=== PATIENT | female | born 1955 | race Caucasian/White ===

== ENCOUNTER 2017-02-16 06:54 | Day surgery (SDC) | payer OTHER ==
--- NOTE | 2017-02-12 13:53 | NUR ---
KELSEY KINSEY WITH DR. DIAMOND'S OFFICE NOTIFIED FOR NEED OF CARDIOLOGY WORKUP INFORMATION FROM NOVEMBER. WILL LOOK INTO THIS AND GET BACK WITH [facility].
[~2017-02-16] VITALS: Ht 152.4 cm; Wt 50.0 kg
[~2017-02-16 06:54] MED LIST: CALC500T55 PO; CYCL7.5T27 PO; GBPN300C PO; LACTATED RINGERS 1,000 ML IV SCH; LEVO25TA2 PO; LSRT50T PO; MAGN100T4 PO; MTP50T PO; NF-ESOM40C PO; SODIUM CHLORIDE FLUSH 3 ML SYR IV PRN; [UNRECOGNIZED DRUG - CODE] TP
--- OUTSIDE RECORDS SUMMARY | 2017-02-16 06:58 | XMS REPORT | Continuity of Care Document ---
Author Author [facility] Organization [facility] Address Unknown Phone Unavailable Allergies Active Description Code Type Severity Reaction Onset Reported/Identified Relationship to Patient Clinical Status Yes Penicillins [id number] Drug Allergy Unknown N/A 03/06/2016 Yes Sulfa (Sulfonamide Antibiotics) [id number] Drug Allergy Unknown N/A 03/06/2016 Yes CHARLEE Inhibitors [id number] Drug Allergy Unknown N/A 02/13/2017 Yes latex [id number] Drug Allergy Unknown N/A 02/13/2017 Medications Problems Date Dx Coded Attending Type Code Diagnosis Diagnosed By 12/17/2015 Ot 793.82 12/17/2015 Ot 793.82 12/24/2015 JASE GAMEZ, ADALBERTO Urbano Ot R51 12/24/2015 JASE GAMEZ, ADALBERTO Urbano Ot M51.36 12/24/2015 JASE GAMEZ, ADALBERTO Urbano Ot M54.5 01/17/2016 JASE GAMEZ, ADALBERTO Urbano Ot R51 01/17/2016 JASE GAMEZ, ADALBERTO Urbano Ot M51.36 01/17/2016 JASE GAMEZ, ADALBERTO Urbano Ot M54.5 02/22/2016 Ot 793.82 INCONCLUSIVE MAMMOGRAM 02/22/2016 Ot 793.82 INCONCLUSIVE MAMMOGRAM 02/22/2016 JASE GAMEZ, ADALBERTO Urbano Ot R51 HEADACHE 02/22/2016 JASE GAMEZ, ADALBERTO Urbano Ot M51.36 OTHER INTERVERTEBRAL DISC DEGENERATION, 02/22/2016 JASE GAMEZ, ADALBERTO Urbano Ot M54.5 LOW BACK PAIN 03/06/2016 Ot 793.82 INCONCLUSIVE MAMMOGRAM 03/06/2016 Ot 793.82 INCONCLUSIVE MAMMOGRAM 03/06/2016 JASE GAMEZ, ADALBERTO Urbano Ot R51 HEADACHE 03/06/2016 JASE GAMEZ, ADALBERTO Urbano Ot M51.36 OTHER INTERVERTEBRAL DISC DEGENERATION, 03/06/2016 JASE GAMEZ, ADALBERTO Urbano Ot M54.5 LOW BACK PAIN 03/10/2016 Dafne Cobos Ot M51.16 INTERVERTEBRAL DISC DISORDERS W RADICULO 03/10/2016 Manguoglu, Ali B Ot M51.26 OTHER INTERVERTEBRAL DISC DISPLACEMENT, 03/11/2016 Manguoglu, Ali B Ot M51.16 INTERVERTEBRAL DISC DISORDERS W RADICULO 03/11/2016 Manguoglu, Ali B Ot M51.26 OTHER INTERVERTEBRAL DISC DISPLACEMENT, 05/06/2016 Manguoglu, Ali B Ot M51.16 INTERVERTEBRAL DISC DISORDERS W RADICULO 05/08/2016 Manguoglu, Ali B Ot M51.16 INTERVERTEBRAL DISC DISORDERS W RADICULO 05/21/2016 Ot 793.82 INCONCLUSIVE MAMMOGRAM 05/21/2016 Ot 793.82 INCONCLUSIVE MAMMOGRAM 05/21/2016 JASE GAMEZ, ADALBERTO Urbano Ot R51 HEADACHE 05/21/2016 JASE GAMEZ, ADALBERTO Urbano Ot M51.36 OTHER INTERVERTEBRAL DISC DEGENERATION, 05/21/2016 JASE GAMEZ, ADALBERTO Urbano Ot M54.5 LOW BACK PAIN 05/21/2016 Manguoglu, Ali B Ot M51.16 INTERVERTEBRAL DISC DISORDERS W RADICULO 05/21/2016 Manguoglu, Ali B Ot M51.26 OTHER INTERVERTEBRAL DISC DISPLACEMENT, 05/21/2016 Manguoglu, Ali B Ot M51.16 INTERVERTEBRAL DISC DISORDERS W RADICULO 05/21/2016 Manguoglu, Ali B Ot M51.16 INTERVERTEBRAL DISC DISORDERS W RADICULO 05/22/2016 Ot 793.82 INCONCLUSIVE MAMMOGRAM 05/22/2016 Ot 793.82 INCONCLUSIVE MAMMOGRAM 05/22/2016 JSAE GAMEZ, ADALBERTO Urbano Ot R51 HEADACHE 05/22/2016 JASE GAMEZ, ADALBERTO Urbano Ot M51.36 OTHER INTERVERTEBRAL DISC DEGENERATION, 05/22/2016 ADALBERTO LAGUNA MD Ot M54.5 LOW BACK PAIN 05/22/2016 Manguoglu, Ali B Ot M51.16 INTERVERTEBRAL DISC DISORDERS W RADICULO 05/22/2016 Manguoglu, Ali B Ot M51.26 OTHER INTERVERTEBRAL DISC DISPLACEMENT, 05/22/2016 Manguoglu, Ali B Ot M51.16 INTERVERTEBRAL DISC DISORDERS W RADICULO 05/22/2016 Manguoglu, Ali B Ot M51.16 INTERVERTEBRAL DISC DISORDERS W RADICULO 06/09/2016 Manguoglu, Ali B Ot G57.02 LESION OF SCIATIC NERVE, LEFT LOWER LIMB 06/09/2016 Manguoglu, Ali B Ot M47.896 OTHER SPONDYLOSIS, LUMBAR REGION 06/09/2016 Manguoglu, Ali B Ot M54.16 RADICULOPATHY, LUMBAR REGION 06/09/2016 Manguoglu, Ali B Ot M51.16 INTERVERTEBRAL DISC DISORDERS W RADICULO 06/23/2016 Ot 793.82 INCONCLUSIVE MAMMOGRAM 06/23/2016 Ot 793.82 INCONCLUSIVE MAMMOGRAM 06/23/2016 JASE GAMEZ, ADALBERTO Urbano Ot R51 HEADACHE 06/23/2016 JASE GAMEZ, ADALBERTO Urbano Ot M51.36 OTHER INTERVERTEBRAL DISC DEGENERATION, 06/23/2016 JASE GAMEZ, ADALBERTO Urbano Ot M54.5 LOW BACK PAIN 06/23/2016 Manguoglu, Ali B Ot M51.16 INTERVERTEBRAL DISC DISORDERS W RADICULO 06/23/2016 Manguoglu, Ali B Ot M51.26 OTHER INTERVERTEBRAL DISC DISPLACEMENT, 06/23/2016 Manguoglu, Ali B Ot M51.16 INTERVERTEBRAL DISC DISORDERS W RADICULO 06/23/2016 Manguoglu, Ali B Ot M51.16 INTERVERTEBRAL DISC DISORDERS W RADICULO 06/23/2016 Manguoglu, Ali B Ot G57.02 LESION OF SCIATIC NERVE, LEFT LOWER LIMB 06/23/2016 Manguoglu, Ali B Ot M47.896 OTHER SPONDYLOSIS, LUMBAR REGION 06/23/2016 Manguoglu, Ali B Ot M54.16 RADICULOPATHY, LUMBAR REGION 07/29/2016 Manguoglu, Ali B Ot M54.16 RADICULOPATHY, LUMBAR REGION 07/29/2016 Manguoglu, Ali B Ot M54.5 LOW BACK PAIN 09/02/2016 Manguoglu, Ali B Ot G57.02 LESION OF SCIATIC NERVE, LEFT LOWER LIMB 09/02/2016 Manguoglu, Ali B Ot M47.896 OTHER SPONDYLOSIS, LUMBAR REGION 09/02/2016 Manguoglu, Ali B Ot M54.16 RADICULOPATHY, LUMBAR REGION 09/03/2016 Manguoglu, Ali B Ot M54.16 RADICULOPATHY, LUMBAR REGION 09/03/2016 Manguoglu, Ali B Ot M54.5 LOW BACK PAIN 10/03/2016 Manguoglu, Ali B Ot M51.16 INTERVERTEBRAL DISC DISORDERS W RADICULO Procedures Code Description Performed By Performed On [id number] 02/22/2016 [id number] 03/06/2016 [id number] INTRODUCTION OF ANTI-INFLAMMATORY INTO M 05/22/2016 [id number] INTRODUCTION OF LOCAL ANESTHETIC INTO MU 05/22/2016 [id number] INTRODUCTION OF ANTI-INFLAM INTO SPINAL 06/23/2016 Results Encounters ACCT No. Visit Date/Time Discharge Status Pt. Type Provider Facility Loc./Unit Complaint [id number] 02/19/2015 10:00:00 02/15/2015 08: 35:00 DIS Outpatient [facility] OUT
[2017-02-16 07:07] VITALS: BP 146/98
[2017-02-16] MEDS ORDERED: LACT1CAP69 PO (07:24)
[2017-02-16] MEDS ORDERED: MULT-976 PO (07:24)
[2017-02-16] MEDS ORDERED: ZINC30TA2 PO (07:24)
[2017-02-16] MEDS ORDERED: MIDAZOLAM 2 MG/2 ML (VERSED) VIAL ONE (07:31)
[2017-02-16] MEDS ORDERED: PROPOFOL 20 ML IV ONE (07:31)
[2017-02-16] MEDS ORDERED: ALFENTANIL 500 MCG/ML (ALFENTA) 5 ML AMP IV ONE (07:31)
[2017-02-16 08:58] VITALS: BP 131/76
[2017-02-16 09:16] VITALS: BP 148/89
--- NOTE | 2017-02-16 09:48 | OPERATIVE REPORT ---
DATE OF OPERATION: 02/16/2017 PRE-OPERATIVE DIAGNOSIS: History of adenomatous colon polyps POST-OPERATIVE DIAGNOSIS: Colon polyps OPERATIVE PROCEDURE: Total colonoscopy with polypectomies (endoscopic mucosal resection) SURGEON: Kenrick Kennedy MD ANESTHESIA: Monitored anesthesia care FINDINGS: 1. The bowel prep was good. 2. There were 3 small polyps that were each removed using saline-lift technique. Pathology is pending. 3. There were no diverticula, inflammation, or angiodysplasia. INDICATION: The patient is a 62-year-old referred by Gracie Strange and Dr. Rodrigez for surveillance colonoscopy. She has a previously of colon polyps. DESCRIPTION OF PROCEDURE: The patient was informed of the risks and benefits and agreed to proceed. She was placed in the left lateral decubitus position and administered IV sedation. When properly sedated a rectal exam was performed, which was normal. The lighted endoscope was passed into the rectum and advanced along the colon. At the region of the hepatic flexure the first polyp was noted and removed using the saline lift and cautery snare. The scope was then advanced to the cecum where the ileocecal valve and the appendiceal orifice were easily seen. The scope was slowly brought back into the ascending colon again where 2 other polyps were seen and removed using the same technique. The transverse, descending, and sigmoid colon were inspected carefully and no polyps were seen there. The rectum appeared normal on regular view and retroflexion. The scope was removed completing the procedure. The patient tolerated the procedure without complications. Pathology is pending, but I will most likely recommend 5-year interval colonoscopy regardless of the pathology report.
== END 2017-02-16 09:23 | disposition home or self-care (01) ==
LOC: ASC 06:54
PROVIDERS: ATTEND Surgery
DX: D12.2 Benign neoplasm of ascending colon (principal); Z86.010 Personal history of colon polyps; Z80.0 Family history of malignant neoplasm of digestive organs; I10 Essential (primary) hypertension; E03.9 Hypothyroidism, unspecified; K21.9 Gastro-esophageal reflux disease without esophagitis
CPT/HCPCS: 45390; J2250; J7120